=== PATIENT | female | born 1955 | race Caucasian/White ===

== ENCOUNTER → 2016-08-27 | Day surgery (SDC) | payer BC ==
[~2016-08-27] MED LIST: ALPRAZOLAM PO; BACTRIM DS TABL1 TA1 PO; BENTYL20 MG PO; BRILINTA90 MG PO; CELEXA PO; CELEXA20 MG PO; CLOPIDOGREL BIS75 MG PO; DESYREL100 MG PO; HYDROCODON-ACE1 EA14 PO; HYDROCODON-ACE1 EAC9 PO; IMDUR PO; KLONOPIN1 MG PO; LEXAPRO PO; LORTAB 7.5-5001 TAB PO; METOPROLOL SUCC25 MG PO; MOBIC PO; NITROQUICK0.4 MG SL; PHENERGAN25 MG PO; PRILOSEC20 MG PO; PRILOSEC40 MG PO; SINEMET CR 25-1 EACH PO; SOMA PO
--- NOTE | ~2016-08-27 | OR ---
Unit #: [id number] #: [id number] Patient: ANKUR ROOT [id number] [address] [place], [place] [address] [id number] MR#: [id number] NAME: ANKUR ROOT ROOM: Date of Procedure: 08/27/2016 Admission Date: 08/27/2016 Surgeon: Devin Jones M.D. : 1955 Attending Physician: Devin Jones M.D. Primary Care Physician: Shawn Carmen M.D. OPERATIVE REPORT JOB NOTE: CC: [facility] PREOPERATIVE DIAGNOSES Back pain, lumbar spondylosis, lumbar facet disease. POSTOPERATIVE DIAGNOSES Back pain, lumbar spondylosis, lumbar facet disease. PROCEDURE PERFORMED Lumbar facet injection x2 levels with intravenous sedation and fluoroscopic guidance for needle localization. INDICATIONS FOR PROCEDURE The patient is a 61-year-old female with significant back pain. She failed to settle with rehabilitation and medical management. She is very intolerant of anti-inflammatories which she said it did help her back. Examination is consistent with facet etiology for pain. In the right, she had significant disease at the L4-L5 and L5-S1 levels. Plan is for trial of diagnostic and therapeutic facet injections at these 2 levels. She does get prolonged improvement and I think we may repeat it if not, but shortened improvement Is obtained, radiofrequency might be considered. DESCRIPTION OF PROCEDURE The patient was placed in a prone position. Standard monitors were applied. 4 mg of Versed were given for sedation and anxiolysis, which were adequate. Vital signs remained stable. Sterile prep and drape then of the lumbosacral area was performed. Fluoroscopy was then used to identify the location of the right L5-S1 and L4-L5 facet joints. The skin over these were localized with 1% lidocaine. A 20-gauge Quincke point spinal needle was advanced with fluoroscopic guidance to bring the needle tip to within the edge of these respective facet joints. After confirming proper positioning with fluoroscopy, a dose of 1 mL of a mixture of 80 mg of Depo-Medrol and 3 mL of 0.25% bupivacaine were deposited, 0.5 mL within the joint and 0.5 mL just outside the joint. The needles were flushed and removed. The patient tolerated this part of procedure well. The exact same procedure was then repeated on the left at the L5-S1 and L4-L5 levels. Again, 20-gauge Quincke point needle was advanced without complaint down into the facet joints. After confirming proper positioning with fluoroscopy, 1 mL of a mixture of previously mentioned combination of Depo-Medrol and local anesthetic was used. The needle was flushed and removed. The patient tolerated the procedure otherwise well and was discharged to the recovery room in stable condition. Unit #: [id number] #: [id number] Patient: ANKUR ROOT Dictated by... Stone Peterosn/tyler TD: 08/27/2016 23:50 JOB #: [id number] OPERATIVE REPORT Page 1 of 1 X Devin Jones MD X PROCEDURE OPERATIVE NOTE
== END | disposition home or self-care (01) ==
LOC: CCSC 10:45
DX: M47.816 Spondylosis without myelopathy or radiculopathy, lumbar region (principal); M48.8X6 Other specified spondylopathies, lumbar region; I10 Essential (primary) hypertension; F32.9 Major depressive disorder, single episode, unspecified; Z88.5 Allergy status to narcotic agent; Z88.8 Allergy status to other drugs, medicaments and biological substances; Z79.899 Other long term (current) drug therapy
CPT/HCPCS: J1040; J2250